=== PATIENT | female | born 1980 | race Caucasian/White ===

== ENCOUNTER 2017-07-21 08:35 | Day surgery (SDC) | payer OTHER ==
--- NOTE | 2017-07-14 14:51 | GHP ---
[f rep st] PREOP HISTORY AND PHYSICAL DATE OF ADMISSION: 07/21/2017 ADMISSION DIAGNOSES: 1. Missed at 7-5/7 weeks. 2. Blighted ovum. HISTORY OF PRESENT ILLNESS: The patient is a 36-year-old 1, para 0, with a last menstrual period 05/03/2017 who presented about a week ago for initial obstetrical visit and had an ultrasound done showing an empty gestational sac measuring about 6 weeks 3 days. No clear yolk sac or pole seen. Questionable blighted ovum. The patient denied any spotting, bleeding or any cramping at that time, but was having the nausea and morning sickness. The patient then presents today for a followup ultrasound. Again an empty gestational sac is seen with no yolk sac or embryo seen, definitely consistent with a blighted ovum. Again denies there was not any spotting or cramping. No bleeding at this time. She still notes, however, she does feel nauseous and fatigued. Condolences were given to the patient. We did discuss treatment options including conservative treatment, waiting to see if nature takes its course versus medical management with Cytotec versus surgical management with a suction D and C. The patient does want to wait to have bleeding and cramping and see if she passes all the products of . The patient desires a suction D and C at this time. We did discuss risks, benefits, alternatives of the procedure including but not limited to bleeding, infection, and risk of uterine perforation. The patient understands all risks of the procedure and wants to proceed with surgery at this time. Surgery is scheduled for 07/21/2017 at 10:30 a.m. PAST OBSTETRICAL HISTORY: Patient is a primip. GYNECOLOGIC HISTORY: Age of menarche 15. Cycles are every 28 days for 7 days. Last menstrual period 05/03/2017 and had a positive test the 1st week in June. This was her 1st menses after having the Mirena IUD removed in December 2016. The patient does have a history of an abnormal Pap test x1, no colposcopy was done, just re-Pap and that was negative and this was about 2 years ago. The patient denies any history of sexually transmitted diseases. PAST MEDICAL HISTORY: Frequent UTIs. PAST SURGICAL HISTORY: Unremarkable. MEDICATIONS: vitamin. ALLERGIES: No known drug allergies. SOCIAL HISTORY: Patient is . She lives with her . 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 Denies any alcohol, tobacco or illicit drug use. She is on a special diet. Does not eat, no cow dairy. FAMILY HISTORY: Maternal grandmother with lung cancer secondary to smoking. Maternal uncle with melanoma. REVIEW OF SYSTEMS: A 10-point review of systems is negative. Pertinent positives noted in HPI. LABORATORY WORK: We do quant of 26,726. Rh status is pending. The patient believes she is O positive. PHYSICAL EXAMINATION: VITAL SIGNS: On admission, vital signs are stable. Patient is afebrile. GENERAL: A well-nourished, well-developed female, alert and oriented x3. No apparent distress. CARDIOVASCULAR: Regular rate and rhythm. LUNGS: Clear to auscultation bilaterally. ABDOMEN: Soft, nontender, nondistended. PELVIC: Exam deferred. EXTREMITIES: Normal to inspection without calf tenderness or edema. ASSESSMENT AND PLAN: The patient is a 36-year-old 1, para 0, with a missed at 7 weeks and 6 days, blighted ovum. PLAN: 1. Admit to Labor and Delivery. 2. We will proceed with a suction D and C. 3. Will obtain consents at bedside. 4. Antibiotics interior design professional to OR. We will do doxycycline orally before and after the procedure. 5. SCDs for DVT prophylaxis. 6. We will check Rh status and will give RhoGAM if indicated. /[id number]/MODL MTDD
[2017-07-21] MEDS ORDERED: MISOPROSTOL 200 MCG TAB ONE (09:51)
[2017-07-21] MEDS ORDERED: DOXYCYCLINE HYCLATE 100 MG CAP/TAB PO ONE ×2 (10:30→11:30)
[2017-07-21] MEDS ORDERED: MIDAZOLAM 2 MG/2 ML VIAL IVP ONE (11:34)
--- NOTE | 2017-07-21 11:36 | PDANEPAE ---
ANE Past Medical History - Cardiovascular History Hx Hypertension: No Hx Arrhythmias: No Hx Chest Pain: No Hx Coronary Artery / Peripheral Vascular Disease: No Hx CHF / Valvular Disease: No Hx Palpitations: No - Pulmonary History Hx COPD: No Hx Asthma/Reactive Airway Disease: No Hx Recent Upper Respiratory Infection: No Hx Oxygen in Use at Home: No Hx Sleep Apnea: No - Endocrine History Hx Diabetes: No Hypothyroid: No Hyperthyroid: No - Renal History Hx Renal Disorders: No - GI History Hx Gastrointestinal Disorders: No - Chronic Pain History Chronic Pain: No ANE Review of Systems Review of Systems: ANE Patient History - Allergies Allergies/Adverse Reactions: No Known Allergies Allergy (Unverified 07/21/17 09:27) - Smoking Hx Smoking Status: Never smoked ANE Labs/Vital Signs - Vital Signs Height: 165.1 cm Weight: 77.111 kg ANE Physical Exam - Airway Neck exam: FROM Mallampati Score: Class 1 Mouth exam: normal dental/mouth exam - Pulmonary Pulmonary: no respiratory distress - Cardiovascular Cardiovascular: regular rate and rhythym - ASA Status ASA Status: I ANE Anesthesia Plan Anesthesia Plan: GA with mask, MAC
[2017-07-21] MEDS ORDERED: PROPOFOL/EMULSION 500 MG/50 ML BOTTLE IV ONE ×2 (12:14→12:55)
[2017-07-21] MEDS ORDERED: LIDOCAINE 2% 5 ML SDV ONE (12:16)
[2017-07-21] MEDS ORDERED: DEXAMETHASONE 4 MG/ML VIAL ONE (13:20)
[2017-07-21] MEDS ORDERED: KETOROLAC 30 MG/1 ML SDV ONE (13:20)
[2017-07-21] MEDS ORDERED: ONDANSETRON 4 MG/2 ML VIAL ONE (13:20)
[2017-07-21] MEDS ORDERED: fentaNYL 100 MCG/2 ML INJ IVP PRN (13:28)
[2017-07-21] MEDS ORDERED: NALOXONE HCL 0.4 MG/ML INJ IVP PRN (13:28)
[2017-07-21] MEDS ORDERED: PROMETHAZINE HCL 25 MG/ML INJ IVP PRN (13:28)
[2017-07-21] MEDS ORDERED: HYDROCODONE/APAP 5/325 TAB PO PRN (13:28)
--- NOTE | 2017-07-21 13:30 | POSTANESTH ---
Post Anesthetic Evaluation Cardiovascular Status: Normal, Stable Respiratory Status: Normal, Stable Level of Consciousness/Mental Status: Can Participate in Eval Pain Control: Adequate, Prn Tx Ordered Nausea/Vomiting Control: Adequate, Prn Tx Ordered Complications Possibly Related to Anesthesia: None Noted
--- NOTE | 2017-07-21 17:18 | GOP ---
[f rep st] OPERATIVE REPORT DATE OF OPERATION: 07/21/2017 SURGEON: Aimee Carney DO SUPERVISOR CRACK OFF: None. ANESTHESIA: LMA ANESTHESIOLOGIST: Dr. Blackman PREOPERATIVE DIAGNOSIS: Missed ; blighted ovum at 7 weeks. POSTOPERATIVE DIAGNOSIS: Missed , blighted ovum at 7 weeks. PROCEDURE PERFORMED: Suction dilation and curettage. FINDINGS: The uterus was gently sounded to 7 cm. Cervical os was closed. No vaginal bleeding or clots noted in the vagina. The uterus was dilated up to a 7.5 Wil, and a curved 7 mm suction curette was used. Minimal products of conception were noted. No bleeding was noted at the end of the procedure. Pt is Rh+. SPECIMENS: Products of conception. ESTIMATED BLOOD LOSS: 50 cc. INDICATIONS: Patient is a 36-year-old, 1, para 0, with LMP 05/03/17 who presented to the office about a week ago for an initial obstetrical visit and had an ultrasound that showed an empty sac measuring 6 weeks and 3 days. Pt denies any spotting or cramping, but was having nausea. She then presented for a follow-up ultrasound that was consistent with a blighted ovum at 7 6/7 weeks. Patient still denies any spotting or cramping. Patient was given condolences and offered treatment options including observation versus medical management with Cytotec versus surgical management with a D&C. Patient wanted to proceed with surgical treatment at this time. Reviewed R /B/A of the procedure with patient including but not limited to bleeding, infection and damage to surrounding organs. Patient understands all risks at this time and wants to proceed with surgery. Patient was properly consented. DESCRIPTION OF PROCEDURE: The patient was taken to the operating room where anesthesia was obtained without difficulty. Patient was given antibiotics it sales consultant to the OR, 100 mg of doxycycline orally. She was positioned in dorsal lithotomy position and prepped and draped in normal sterile fashion. Once the anesthetic was found to be adequate, an open-ended speculum was placed in the vagina. The anterior lip of the cervix was grasped with an Allis clamp. The uterus was then gently sounded to 7 cm. The cervix was then dilated up to a # 7.5 Wil dilator. A size 7 mm curved suction curette was used. It was connected to suction and placed gently up inside the uterus, and a suction curettage was performed. Three passes were made with the suction curettage to remove products of . Next, we turned our attention to sharp curettage which was performed until there was a gritty texture noted in all 4 quadrants of the uterus. This was done under ultrasound guidance, with removal of all products of conception. We then passed the suction curette one last time to remove any remaining products of . All instruments were then removed from the vagina. Hemostasis was noted. Patient tolerated the procedure well. No complications. All instrument and sponge counts correct x2. Patient was then awakened and taken to PACU in stable condition where she is to get 200 mg of doxycycline. IV FLUIDS: 500 cc LR. URINE OUTPUT: Bladder drained, by red rubber, with 50 cc of clear urine at the end of the procedure. COMPLICATIONS: None. /[id number]/MODL MTDD
== END 2017-07-21 15:15 | disposition home or self-care (01) ==
LOC: FOBOP 08:35
PROVIDERS: ATTEND Obstetrics & Gynecology
PROC: 10D17ZZ Extraction of Products of Conception, Retained, Via Natural or Artificial Opening (ICD-10-PCS; principal; 2017-07-21)
DX: O02.0 Blighted ovum and nonhydatidiform mole (principal); Z87.440 Personal history of urinary (tract) infections
CPT/HCPCS: J1100; J1885; J2250; J2405; J2704

== ENCOUNTER → 2019-01-01 | Outpatient (CLI) | payer OTHER | LOC: FIMAGING 11:54 | PROVIDERS: ATTEND Obstetrics & Gynecology | DX: O09.522 Supervision of elderly multigravida, second trimester (principal); Z3A.19 19 weeks gestation of pregnancy ==